=== PATIENT | male | born 1975 ===

== ENCOUNTER 2017-09-19 02:55 | Emergency (ER) | payer MEDICARE, OTHER ==
[2017-09-19 03:08] VITALS: BMI 41.3
--- NOTE | 2017-09-19 04:14 | ED PDOC ---
HPI: Back Time Seen by Provider: 09/19/17 03:12 Chief Complaint (Nursing): Chest Pain Chief Complaint (Provider): back pain History Per: Patient History/Exam Limitations: no limitations Onset/Duration Of Symptoms: Hrs Current Symptoms Are (Timing): Still Present Additional Complaint(s): 42 y/o male presents for evaluation of left lower back pain x 5 hours. Patient reports similar pain 2 weeks ago, but states resolved with ibuprofen and then returned last night while trying to fall asleep. Denies fever, nausea/vomiting , abdominal pain, changes in bowel movements, hematuria, dysuria, numbness/ weakness lower extremities, bowel/bladder incontinence. Patient states also reports pain to left lower chest x 2 weeks. States pain worse with movement and to touch, improves with ibuprofen. Denies known injury , shortness of breath, palpitations. Past Medical History Reviewed: Historical Data, Nursing Documentation, Vital Signs Vital Signs: Last Vital Signs Temp 98.0 F 09/19/17 03:08 Pulse 65 09/19/17 03:08 Resp 16 09/19/17 03:08 BP 189/113 H 09/19/17 03:08 Pulse Ox 97 09/19/17 03:08 - Medical History PMH: HTN, Hypercholesterolemia Denies: Chronic Kidney Disease - Surgical History Surgical History: Cholecystectomy - Family History Family History: States: Unknown Family Hx - Immunization History Hx Tetanus Toxoid Vaccination: No Hx Influenza Vaccination: No Hx Pneumococcal Vaccination: No - Home Medications Home Medications: Ambulatory Orders Medication Instructions Recorded Naproxen [Naprosyn] 1 tab PO BID PRN #25 tab 04/27/17 Zolpidem [Ambien] 5 mg PO HS PRN 04/27/17 Amoxicillin [Amoxil 500 mg Cap] 500 mg PO TID #29 cap 08/17/17 Ibuprofen [Motrin Tab] 800 mg PO TID #20 tab 08/17/17 oxyCODONE/Acetaminophen [Percocet 1 tab PO QID PRN #5 tab 08/17/17 5/325 mg Tab] Cyclobenzaprine [Cyclobenzaprine 10 mg PO BID PRN #14 tab 09/19/17 HCl] Ibuprofen [Motrin Tab] 1 tab PO Q6 PRN #20 tab 09/19/17 Tamsulosin [Flomax] 0.4 mg PO DAILY #10 cap 09/19/17 oxyCODONE/Acetaminophen [Percocet 1 ea PO Q6 PRN #10 tab 09/19/17 5/325 mg Tab] - Allergies Allergies/Adverse Reactions: Allergies Allergy/AdvReac Type Severity Reaction Status Date / Time No Known Allergies Allergy Verified 09/19/17 03:08 Review of Systems ROS Statement: Except As Marked, All Systems Reviewed And Found Negative Cardiovascular: Positive for: Chest Pain Musculoskeletal: Positive for: Back Pain Physical Exam - Reviewed Nursing Documentation Reviewed: Yes Vital Signs Reviewed: Yes - Physical Exam Appears: Positive for: Well, Non-toxic, No Acute Distress Head Exam: Positive for: ATRAUMATIC, NORMAL INSPECTION, NORMOCEPHALIC Skin: Positive for: Normal Color Eye Exam: Positive for: Normal appearance ENT: Positive for: Normal ENT Inspection Cardiovascular/Chest: Positive for: Regular Rate, Rhythm. Negative for: Chest Non Tender (tender to palpate left anterior/inferior chest wall, inferior and lateral to breast. + palpable muscle spasm. No skin erythema, warmth, fluctuance) Respiratory: Positive for: Normal Breath Sounds Gastrointestinal/Abdominal: Positive for: Normal Exam Back: Positive for: Normal Inspection, L CVA Tenderness, Muscle Spasm (left lower back) Extremity: Positive for: Normal ROM Neurologic/Psych: Positive for: Alert, Oriented - Laboratory Results Result Diagrams: 09/19/17 04:41 09/19/17 04:41 - ECG ECG: Positive for: Viewed By Me (reviewed by ED attending) ECG Rhythm: Positive for: Sinus Rhythm O2 Sat by Pulse Oximetry: 97 Pulse Ox Interpretation: Normal - Radiology X-Ray: Viewed By Me X-Ray Interpretation: No Acute Disease - Progress ED Course And Treament: labs, chest xray, CT rental protocol, IV toradol, PO flexeril EXAM: CT Abdomen and Pelvis Without Intravenous Contrast CLINICAL HISTORY: 42 years old, male; Pain; Abdominal pain; Flank; Left; Prior surgery; Surgery date: 6+ months; Surgery type: Gall bladder removed; Additional info: Left flank pain TECHNIQUE: Axial computed tomography images of the abdomen and pelvis without intravenous contrast. All CT scans at this facility use one or more dose reduction techniques, viz.: automated exposure control; ma/kV adjustment per patient size (including targeted exams where dose is matched to indication; i.e. head); or iterative reconstruction technique. Coronal and sagittal reformatted images were created and reviewed. COMPARISON: US - GALLBLADDER COMMON DUCT 2015-10-12 20:55 FINDINGS: Lung bases: There is minimal bibasilar atelectasis. ABDOMEN: Liver: Unremarkable. Gallbladder and bile ducts: There has been a cholecystectomy. No ductal dilation. Pancreas: Unremarkable. No ductal dilation. Spleen: Unremarkable. No splenomegaly. Adrenals: There is a focal hypodense nodule in the left adrenal gland measuring 3.2 x 2.5 cm, consistent in appearance with a benign adrenal adenoma. The right adrenal gland is normal. Kidneys and ureters: There is mild left hydronephrosis and hydroureter secondary to 2 mm stone in the left ureteral vesicle junction. The right kidney is normal. Stomach and bowel: Unremarkable. No obstruction. No mucosal thickening. Appendix: No findings to suggest acute appendicitis. Normal appendix. PELVIS: Bladder: Unremarkable. No stones. Reproductive: Unremarkable as visualized. ABDOMEN and PELVIS: Intraperitoneal space: Unremarkable. No free air. No significant fluid collection. Bones/joints: No acute fracture. No dislocation. Soft tissues: Unremarkable. Vasculature: The vasculature demonstrates diffuse mild atherosclerotic calcification. No abdominal aortic aneurysm. Lymph nodes: Unremarkable. No enlarged lymph nodes. IMPRESSION: Mild left hydroureteronephrosis secondary to a 2 mm stone in the left ureteral vesicle junction. Cholecystectomy. Benign left adrenal adenoma. On re-eval, patient states he is feeling better. Patient educated on findings, discharged with rx Flomax (dose given in ED), Percocet, Ibuprofen, Flexeril. Strainer given with education on use. Follow up urology Return precautions given. Disposition - Clinical Impression Clinical Impression: Kidney stone on left side, Left-sided chest wall pain - Patient ED Disposition Is Patient to be Admitted: No Counseled Patient/Family Regarding: Studies Performed, Diagnosis, Need For Followup, Rx Given - Disposition Referrals: Cheko Yen MD [Primary Care Provider] - Yunior Carty MD [Staff Provider] - Disposition: Routine/Home Disposition Time: 06:08 Condition: IMPROVED Prescriptions: Cyclobenzaprine [Cyclobenzaprine HCl] 10 mg PO BID PRN #14 tab PRN Reason: Muscle Spasm Ibuprofen [Motrin Tab] 1 tab PO Q6 PRN #20 tab PRN Reason: Pain, Moderate (4-7) oxyCODONE/Acetaminophen [Percocet 5/325 mg Tab] 1 ea PO Q6 PRN #10 tab PRN Reason: Pain, Severe (8-10) Tamsulosin [Flomax] 0.4 mg PO DAILY #10 cap Instructions: Kidney Stones in Adults Forms: [facility] ([place])
[2017-09-19 04:46] LABS: BASO # 0.1 K/uL (0.0-0.2); BASO % 0.9 % (0.0-2.0); EOS # 0.3 K/uL (0.0-0.7); EOS % 2.9 % (0.0-4.0); HEMOGLOBIN 14.9 g/dL (12.0-18.0); LYMPH % 26.5 % (20.0-40.0); MEAN CELL VOLUME 90.3 fl (80.0-94.0); MEAN CORPUSCULAR HEMOGLOBIN 30.6 pg (27.0-31.0); MEAN CORPUSCULAR HGB CONC 33.9 g/dL (33.0-37.0); MEAN PLATELET VOLUME 8.3 fl (7.2-11.7); NEUT # 6.9 K/uL (1.8-7.0); NEUT % 60.7 % (50.0-75.0); RBC 4.87 Mil/uL (4.40-5.90); WHITE BLOOD COUNT 11.3 K/uL (4.8-10.8)
[2017-09-19 04:50] LABS: SQUAMOUS EPITHIAL 1 /hpf (0-5); URINE BACTERIA RARE (<OCC); URINE BILIRUBIN SMALL (NEGATIVE); URINE BLOOD MODERATE (NEGATIVE); URINE CALCIUM OXALATE CRYSTALS OCC /hpf (<OCC); URINE CLARITY CLOUDY (Clear); URINE COLOR AMBER (YELLOW); URINE GLUCOSE (UA) NEG (Normal); URINE LEUKOCYTE ESTERASE NEG Leu/uL (Negative); URINE PROTEIN 100 mg/dL (NEGATIVE)
[2017-09-19 04:58] LABS: ALB/GLOB RATIO 1.1 (1.0-2.1); ALT/SGPT 76 U/L (21-72); AST/SGOT 38 U/L (17-59); BLOOD UREA NITROGEN 16 mg/dl (9-20); CALCIUM 9.2 mg/dL (8.4-10.2); GFR AFRICAN-AMERICAN > 60; GFR NON-AFRICAN AMERICAN > 60
--- NOTE | 2017-09-19 05:56 | CT ---
EXAM: CT Abdomen and Pelvis Without Intravenous Contrast CLINICAL HISTORY: 42 years old, male; Pain; Abdominal pain; Flank; Left; Prior surgery; Surgery date: 6+ months; Surgery type: Gall bladder removed; Additional info: Left flank pain TECHNIQUE: Axial computed tomography images of the abdomen and pelvis without intravenous contrast. All CT scans at this facility use one or more dose reduction techniques, viz.: automated exposure control; ma/kV adjustment per patient size (including targeted exams where dose is matched to indication; i.e. head); or iterative reconstruction technique. Coronal and sagittal reformatted images were created and reviewed. COMPARISON: US - GALLBLADDER COMMON DUCT 2015-10-12 20:55 FINDINGS: Lung bases: There is minimal bibasilar atelectasis. ABDOMEN: Liver: Unremarkable. Gallbladder and bile ducts: There has been a cholecystectomy. No ductal dilation. Pancreas: Unremarkable. No ductal dilation. Spleen: Unremarkable. No splenomegaly. Adrenals: There is a focal hypodense nodule in the left adrenal gland measuring 3.2 x 2.5 cm, consistent in appearance with a benign adrenal adenoma. The right adrenal gland is normal. Kidneys and ureters: There is mild left hydronephrosis and hydroureter secondary to 2 mm stone in the left ureteral vesicle junction. The right kidney is normal. Stomach and bowel: Unremarkable. No obstruction. No mucosal thickening. Appendix: No findings to suggest acute appendicitis. Normal appendix. PELVIS: Bladder: Unremarkable. No stones. Reproductive: Unremarkable as visualized. ABDOMEN and PELVIS: Intraperitoneal space: Unremarkable. No free air. No significant fluid collection. Bones/joints: No acute fracture. No dislocation. Soft tissues: Unremarkable. Vasculature: The vasculature demonstrates diffuse mild atherosclerotic calcification. No abdominal aortic aneurysm. Lymph nodes: Unremarkable. No enlarged lymph nodes. IMPRESSION: Mild left hydroureteronephrosis secondary to a 2 mm stone in the left ureteral vesicle junction. Cholecystectomy. Benign left adrenal adenoma.
[2017-09-19] MEDS ORDERED: Sodium Chloride 0.9% 1,000 ML IV STA (06:00)
[2017-09-19] MEDS ORDERED: Lidocaine 200 MG in Sodium Chloride 0.9% 100 ML IV STA (06:34)
[2017-09-19 08:46] VITALS: BP 138/78; PULSE 77; RESP 18; TEMP 98.2; O2SAT 99
--- NOTE | 2017-09-19 11:08 | RAD ---
HISTORY: anterior left chest wall pain COMPARISON: 10/12/2015 TECHNIQUE: Chest PA and lateral FINDINGS: LUNGS: No active pulmonary disease. PLEURA: No significant pleural effusion identified. No pneumothorax apparent. CARDIOVASCULAR: Normal. OSSEOUS STRUCTURES: No significant abnormalities. VISUALIZED UPPER ABDOMEN: Normal. OTHER FINDINGS: None. IMPRESSION: No active disease.
== END 2017-09-19 08:40 | disposition home or self-care (01) ==
LOC: H.ER 02:55
DX: N13.2 Hydronephrosis with renal and ureteral calculous obstruction (principal); R07.89 Other chest pain; E78.00 Pure hypercholesterolemia, unspecified; I10 Essential (primary) hypertension; Z90.49 Acquired absence of other specified parts of digestive tract
CPT/HCPCS: 71046; 74176; 80053; 81003; 85025; 87086; 96360; 99285; J1885; J2001; J2270; J7040